=== PATIENT | female | born 1960 | race African-American/Black ===

== ENCOUNTER 2016-07-17 00:52 | Inpatient (IN) ==
--- NOTE | 2016-07-17 03:12 | PROVIDER DOCUMENTATION ---
HPI-Respiratory General - General Source: patient - History of Present Illness-Resp Quality of Pain: reports: aching, cramping Severity in ED: reports: moderate Onset/Duration: reports: unsure Timing: reports: still present, getting worse Cough Quality/Degree: reports: mild, productive cough, sputum (green) Associated Symptoms: reports: chest pain/soreness, cough, fever/chills, hurts to breathe, muscle/bodyaches, shortness of breath, short of breath, wheezing. denies: dizziness, headache, heart racing, hyperventilating, lightheadedness, sinus pain, sore throat, sweaty <Wesley Latham - Last Filed: 07/17/16 03:06> - General Source: patient - History of Present Illness-Resp Quality of Pain: reports: aching, pressure Severity in ED: reports: mild Onset/Duration: reports: 4-6 hours ago Timing: reports: getting worse Cough Quality/Degree: reports: moderate (orthopnea) Episode Frequency: rare episodes Current Respiratory Medication Therapy: Initiated none Associated Symptoms: reports: cough Similar Symptoms Previously?: No Recently seen or treated by another doctor?: Yes (dialysis pt) <Quan Land - Last Filed: 07/17/16 04:32> - General Chief Complaint: Cough Stated Complaint: COUGH Time Seen by Provider: 07/17/16 02:53 Allergies/Adverse Reactions: Patient Allergies Allergy/AdvReac Type Severity Reaction Status Date / Time No Known Allergies Allergy Verified 07/17/16 01:30 Home Medications: Home Medication List Medication Instructions Recorded Confirmed Last Taken Type Duloxetine HCl [Cymbalta] 80 mg PO QPM 08/30/12 03/24/16 03/28/16 20:00 History Insulin NPL/Insulin Lispro 20 unit SQ TID 08/12/13 03/24/16 03/28/16 20:00 History [Humalog Mix 75-25 Pen] Gabapentin 600 mg PO TID 11/04/14 03/24/16 03/28/16 20:00 History Insulin Glargine [Lantus] 40 unit SUBQ QHS 02/27/15 03/29/16 03/28/16 20:00 History ATORVAstatin [Lipitor] 60 mg PO QHS 03/20/15 03/24/16 03/28/16 20:00 History Felodipine [Felodipine ER] 10 mg PO QPM 03/20/15 03/24/16 03/28/16 20:00 History Fluticasone/Salmet 250/50 INH 1 puff INH BID 08/14/15 03/24/16 03/28/16 20:00 History [Advair 250/50 Diskus] LISINOpril [Prinivil] 40 mg PO BID 08/14/15 03/24/16 03/28/16 20:00 History Omeprazole [Prilosec] 40 mg PO BID 08/14/15 03/24/16 03/28/16 20:00 History Promethazine [Phenergan] 25 mg PO Q6H PRN PRN 08/14/15 03/24/16 01/06/16 09:00 History 25 MG Calcium Carbonate/Vit D3 [Caltrate 1 each PO TID 12/29/15 03/24/16 03/28/16 20: 00 History 600 + D] Polyethylene Glycol 3350 [Miralax] 17 gm PO DAILY #1 powd.pack 01/01/16 1 Week Ago Rx - History of Present Illness-Resp Nature of Presenting Problem: Pt is a 55 yof who presents to ER with CC of chest congestion x"a couple of days." Pt is a dialysis pt (Tuesday, , Tuesday) and reports that she has developed chest congestion, sob, c/p, and back pain. Pt denies the possibility of her symptoms being caused by CHF. Pt also reports fever and chills and a productive cough. (Wesley Latham) 55 yo [facility] dialysis was sbrought to ER due to chronic cough, orthopnea and generalized. She has not missed any dialysis , is scheduled to dialyze at 10 am today. She forgot to take her usual 40 units of Lantus tonight. She denies fever and chills. (Quan Land) Review of Systems - Adult - REVIEW OF SYSTEMS - ADULT Constitutional: reports: chills, fever, fatique. denies: night sweats Eyes: reports: no symptoms reported Ears, Nose, Mouth & Throat: reports: no symptoms reported Cardiovascular: reports: chest pain. denies: edema, heart murmur, irregular heart rate, orthopnea, palpitations, poor circulation, PND, syncope Respiratory: reports: chronic cough, cough, dyspnea on exertion, excessive sputum production, shortness of breath, wheezing. denies: hemoptysis, pleurisy Gastrointestinal: reports: no symptoms reported Genitourinary: reports: no symptoms reported Musculoskeletal: reports: back pain, muscle aches, muscle weakness. denies: bone pain, frequent leg cramps, joint pain, joint swelling, neck pain Integumentary: reports: no symptoms reported Neurological: reports: no symptoms reported Psychiatric: reports: no symptoms reported Endocrine: reports: no symptoms reported Hematologic/Lymphatic: reports: no symptoms reported Allergic/Immunologic: reports: no symptoms reported All Other Systems: Reviewed and Negative <Wesley Latham - Last Filed: 07/17/16 03:06> - REVIEW OF SYSTEMS - ADULT Constitutional: reports: no symptoms reported, see HPI Eyes: reports: no symptoms reported Ears, Nose, Mouth & Throat: reports: no symptoms reported Cardiovascular: reports: no symptoms reported Respiratory: reports: see HPI, chronic cough Gastrointestinal: reports: no symptoms reported Genitourinary: reports: no symptoms reported Musculoskeletal: reports: no symptoms reported Integumentary: reports: no symptoms reported Neurological: reports: no symptoms reported Psychiatric: reports: no symptoms reported Endocrine: reports: see HPI Hematologic/Lymphatic: reports: no symptoms reported Allergic/Immunologic: reports: no symptoms reported <Quan Land - Last Filed: 07/17/16 04:32> Past History - Adult - PAST MEDICAL HISTORY-ADULT Review of Records: reports: Nursing Assessment Review, Medications Reviewed Cardiovascular: reports: CHF, HTN, [place] Respiratory: reports: COPD Gastrointestinal: reports: GERD Genitourinary: reports: ESRD, kidney disease Musculoskeletal: reports: arthritis Neurological: reports: headaches/migraines, other (neuropathy) Psychiatric: reports: anxiety, other (panic attacks) Endocrine/Immune: reports: Diabetes Other Conditions: reports: cataract/glaucoma - PRIOR SURGERIES/PROCEDURES Surgical/Procedure History: reports: BTL, , orthopedic (extremity) ( bilateral carpel tunnel), other (lumpectomy, cataracts) - IMMUNIZATION STATUS Childhood Immunizations: See Nurse Assessment Flu Vaccine: See Nurse Assessment - FAMILY HISTORY Family History: other (cad in father age 50) <Wesley Latham - Last Filed: 07/17/16 03:06> - PAST MEDICAL HISTORY-ADULT Major Childhood Illnesses: reports: denies history (ESRD on hemoddialysis) Genitourinary: reports: dialysis, ESRD Musculoskeletal: reports: denies history Psychiatric: reports: denies history Diabetes Type: Type 2 <Quan Land - Last Filed: 07/17/16 04:32> Physical Exam-General - PHYSICAL EXAM-ADULT Initial Vital Signs Reviewed: Yes - CONSTITUTIONAL General Appearance: appears well, alert, moderate distress - NECK Neck: non-tender, full range of motion, supple - RESPIRATORY Respiratory: chest non-tender, lungs clear, normal breath sounds - CARDIOVASCULAR Cardiovascular: normal peripheral pulses, regular rate, rhythm - GASTROINTESTINAL (ABDOMEN) Abdominal Exam: normal bowel sounds, non tender, soft - LYMPHATIC Lymphatic: no adenopathy - NEUROLOGIC Neurologic: grossly normal, no motor/sensory deficits - PSYCHIATRIC Psych/Mental Status: normal mood/affect, normal thought content, normal thought process, oriented x 3 <Wesley Latham - Last Filed: 07/17/16 03:06> - PHYSICAL EXAM-ADULT Initial Vital Signs Reviewed: Yes - CONSTITUTIONAL General Appearance: appears well, mild distress - EYES Eyes: pink conjunctivae - HEAD, EARS, NOSE, MOUTH & THROAT HENMT: normocephalic/atraumatic - NECK Neck: non-tender, full range of motion - RESPIRATORY Respiratory: rales - CARDIOVASCULAR Cardiovascular: normal peripheral pulses, regular rate, rhythm. negative: no edema - GASTROINTESTINAL (ABDOMEN) Abdominal Exam: normal bowel sounds, non tender, soft - LYMPHATIC Lymphatic: no adenopathy - MUSCULOSKELETAL Extremity: normal range of motion - SKIN Integumentary: normal color - NEUROLOGIC Neurologic: grossly normal <uQan Land - Last Filed: 07/17/16 04:32> Progress <Weslye Latham - Last Filed: 07/17/16 03:06> - REASSESSMENT Reassessment #1 Time Reassessed: 04:29 - XRAY 1 XRAY Study: Chest Impression: Abnormal, See EMR Report <Quan Land - Last Filed: 07/17/16 04:32> - PLAN OF CARE/RESULTS Progress/Plan/Lab Results: Laboratory Tests 07/17/16 07/17/16 03:33 03:33 WBC 12.03 H RBC 3.35 L Hgb 10.1 L Hct 30.5 L MCV 91.0 MCH 30.1 MCHC 33.1 RDW Std Deviation 13.8 Plt Count 283 MPV 10.4 Immature Gran % (Auto) 0.3 Neut % (Auto) 76.5 H Lymph % (Auto) 11.[address] [place] % (Auto) 9.7 H Eos % (Auto) 1.5 Baso % (Auto) 0.4 Immature Gran # (Auto) 0.04 Neut # (Auto) 9.20 H Lymph # (Auto) 1.39 [facility] # (Auto) 1.17 H Eos # (Auto) 0.18 Baso # (Auto) 0.05 Sodium 130 L Potassium 3.8 Chloride 87 L Carbon Dioxide 24 L Anion Gap 19 BUN 43 H Creatinine 6.3 H Estimated GFR/1.73 m2 8 BUN/Creatinine Ratio 7 Glucose 685 H* Calculated Osmolality 304 Calcium 8.3 L Orders Category Date Time Status CHEST-2 VIEWS [RAD] Stat Exams 07/17/16 03:05 Taken BMP [BASIC METABOLIC PANEL] [CHEM] Stat Lab 07/17/16 03:33 Completed CBC WITH ELECTRONIC DIFF [HEME] Stat Lab 07/17/16 03:33 Completed Flu Swab [INFLUENZA SCREEN A/B] Stat Lab 07/17/16 01:23 Completed Insulin Human Regular [Humulin R] Med 07/17/16 04:06 Discontinued 10 unit IV NOW ONE Vital Signs Temp Pulse Resp BP Pulse Ox 07/17/16 04:06 91 H 14 176/72 95 07/17/16 01:28 100 H 18 193/78 100 07/17/16 00:59 98.7 F 102 H 20 205/95 88 L No Known Allergies Allergy (Verified 07/17/16 01:30) Duloxetine HCl [Cymbalta] 80 mg PO QPM 08/30/12 Insulin NPL/Insulin Lispro [Humalog Mix 75-25 Pen] 20 unit SQ TID 08/12/13 Gabapentin 600 mg PO TID 11/04/14 Insulin Glargine [Lantus] 40 unit SUBQ QHS 02/27/15 ATORVAstatin [Lipitor] 60 mg PO QHS 03/20/15 Felodipine [Felodipine ER] 10 mg PO QPM 03/20/15 Fluticasone/Salmet 250/50 INH [Advair 250/50 Diskus] 1 puff INH BID 08/14/15 LISINOpril [Prinivil] 40 mg PO BID 08/14/15 Omeprazole [Prilosec] 40 mg PO BID 08/14/15 Promethazine [Phenergan] 25 mg PO Q6H PRN PRN 08/14/15 Calcium Carbonate/Vit D3 [Caltrate 600 + D] 1 each PO TID 12/29/15 Polyethylene Glycol 3350 [Miralax] 17 gm PO DAILY #1 powd.pack 01/01/16 Laboratory 07/17/16 07/17/16 03:33 03:33 WBC 12.03 H RBC 3.35 L Hgb 10.1 L Hct 30.5 L MCV 91.0 MCH 30.1 MCHC 33.1 RDW Std Deviation 13.8 Plt Count 283 MPV 10.4 Immature Gran % (Auto) 0.3 Neut % (Auto) 76.5 H Lymph % (Auto) 11.[address] [place] % (Auto) 9.7 H Eos % (Auto) 1.5 Baso % (Auto) 0.4 Immature Gran # (Auto) 0.04 Neut # (Auto) 9.20 H Lymph # (Auto) 1.39 [facility] # (Auto) 1.17 H Eos # (Auto) 0.18 Baso # (Auto) 0.05 Sodium 130 L Potassium 3.8 Chloride 87 L Carbon Dioxide 24 L Anion Gap 19 BUN 43 H Creatinine 6.3 H Estimated GFR/1.73 m2 8 BUN/Creatinine Ratio 7 Glucose 685 H* Calculated Osmolality 304 Calcium 8.3 L (Quan Land) Departure <Wesley Latham - Last Filed: 07/17/16 03:06> - Departure Time of Disposition Order: 04:30 Certified Medical Emergency: Emergent - Critical Care Note Total Time (mins): 30 Critical Care Statement: This patient required my direct personal management to treat or rule out processes, the absence of which, could potentiallly result in sudden, clinically significant life or limb threatening deterioration. <Quan Land - Last Filed: 07/17/16 04:32> - Departure DIAGNOSIS: Pulmonary edema Hyperglycemia due to type 2 diabetes mellitus Qualifiers: Diabetes mellitus intermediate card tender insulin use: with nursing home use Qualified Code(s): E11.65 - Type 2 diabetes mellitus with hyperglycemia; Z79.4 - correction (current ) use of insulin CHF (congestive heart failure) Qualifiers: Congestive heart failure type: combined Disposition: ADMITTED INPATIENT 09 Condition: Poor Attestation - Scribe Verification/Attestation Scribe:: Wesley Latham Acting as Scribe for:: Quan Land Scribe documention review:: This chart was documented by a scribe and accurately reflects the service the provider performed and the decisions made by the provider. <Wesley Latham - Last Filed: 07/17/16 03:06> Physician Attestation
[2016-07-17 03:41] LABS: MANUAL DIFF NEEDED? NO
[2016-07-17 03:42] LABS: BASO% 0.4 % (0.0-0.8); EOS# 0.18 X1000 (0.0-0.7); EOS% 1.5 % (0.0-10.0); HEMATOCRIT 30.5 % (37.0-47.0); HEMOGLOBIN 10.1 g/dL (12.0-16.0); IMM GRAN# 0.04 X1000 (0.0-0.04); IMM GRAN% 0.3 % (0.0-0.5); LYMPH# 1.39 X1000 (1.2-3.4); LYMPH% 11.6 % (20.5-51.1); MCH 30.1 PG (27-31); MCHC 33.1 g/dL (33-37); MONO# 1.17 X1000 (0.11-0.59); MONO% 9.7 % (1.7-9.3); MPV 10.4 FL (7.4-10.4); NEUT% 76.5 % (42.2-75.2); PLT 283 X1000 (130-400); RBC 3.35 XMIL (4.2-5.4)
[2016-07-17 04:00] LABS: CALCIUM 8.3 mg/dL (8.8-10.2); POTASSIUM 3.8 mmol/L (3.5-5.1)
[2016-07-17] MEDS ORDERED: HUMULIN R IV ONE (04:06)
[2016-07-17] MEDS ORDERED: ZOFRAN IV ONE (05:04)
[2016-07-17] MEDS ORDERED: MORPHINE IV ONE (05:04)
[2016-07-17] MEDS ORDERED: ASPIRIN PO ONE (05:08)
[2016-07-17] MEDS ORDERED: MORPHINE ONE (05:08)
[2016-07-17] MEDS ORDERED: ASPIRIN ONE (05:09)
[2016-07-17] MEDS ORDERED: LASIX IV ONE (05:22)
[2016-07-17] MEDS ORDERED: LOPRESSOR PO ONE (05:29)
[2016-07-17] MEDS ORDERED: PHENERGAN PO PRN (05:54)
[2016-07-17] MEDS ORDERED: HUMALOG SUBQ ONE (05:54)
[2016-07-17] MEDS ORDERED: MORPHINE IV PRN ×2 (05:54→16:55)
[2016-07-17] MEDS ORDERED: TYLENOL PO PRN (05:54)
[2016-07-17 06:15] LABS: FERRITIN 1887 ng/mL (13-150)
[2016-07-17] MEDS: NITROGLYCERIN TOP SCH ×3 (06:35→21:40)
[2016-07-17 06:40] LABS: CK INDEX 1.1 (0.0-2.5); CK-MB 2.03 ng/mL (0.0-5.0)
[2016-07-17] MEDS ORDERED: PRILOSEC PO SCH ×2 (07:00→09:00)
[2016-07-17] MEDS ORDERED: HEPARIN IV PRN (07:27)
[2016-07-17] MEDS ORDERED: TIGHT: 0.2 ML/HR MISC PRN (07:27)
[2016-07-17] MEDS ORDERED: NS 2,000 ML MISC PRN (07:27)
[2016-07-17] MEDS: ADVAIR 250/50 DISKUS INH SCH ×2 (08:16→19:09)
--- NOTE | 2016-07-17 08:41 | HISTORY AND PHYSICAL ---
PHYSICIAN: Tommy Gupta MD CHIEF COMPLAINT: Complaining of 2-day history of chest pain, cough and shortness of breath. HISTORY OF PRESENT ILLNESS: Ms. Wilkerson is a 55-year-old lady with past medical history of end- stage renal disease on hemodialysis, hypertension, hyperlipidemia, sleep apnea, glaucoma, depression, diastolic heart failure GERD, prior CVA, uncontrolled type 2 diabetes with retinopathy, who comes in today complaining of left-sided chest pain radiating to her back and down her left arm which is aching in quality, constant, waxing and waning in intensity. It is associated with movement and eases when she stops moving. She is having a cough productive of whitish, foamy sputum and complains of nausea but no vomiting. Chills but no fever. Denies any palpitations, any leg swelling or abdominal swelling. Complains of 1-day history of orthopnea and PND with this. No complaints of easy satiety, polyuria, polydipsia, altered bowel movements. No upper respiratory complaints. REVIEW OF SYSTEMS: Negative for any intermittent blurry vision. She has a longstanding history of oligomenorrhea from her declining renal function. Twelve system review is negative. Positive findings per HPI. ALLERGIES: None. MEDICATIONS: She is on Cymbalta 80 mg in the evening, lispro, Humalog 3 times a day, gabapentin 600 mg b.i.d., Lantus 40 mg at bedtime, felodipine 10 mg at bedtime, Atorvastatin 60 mg at bedtime, Phenergan 25 mg q.6 p.r.n., Advair 250/50 one puff b.i.d., omeprazole 40 mg daily, lisinopril 40 mg b.i.d., Zantac 150 mg daily, calcium carbonate with vitamin D 1 tab in the morning. SURGICAL HISTORY: She has had bilateral cataract repair, bilateral carpal tunnel repair, lumpectomy, tubal ligation, AV fistula, formation section, abdominal surgery - type unknown. FAMILY HISTORY: Notable for heart disease in first-degree relatives and type 2 diabetes in first- degree relatives. SOCIAL HISTORY: Patient is for denies any tobacco, alcohol, or drug use. She is . LABORATORY WORK: EKG showed normal sinus rhythm with no ST-wave changes. Chest x-ray shows mildly increased vascular congestion but no cardiomegaly or infiltrate. Other labs, blood sugar is 12. Hemoglobin 10 and hematocrit 30, platelets 283,000, with slight left shift. Sodium is 130, BUN is 43, creatinine 6.3, glucose 685. Troponin is pending. PHYSICAL EXAMINATION: VITAL SIGNS: Blood pressure is 176/72, heart rate is 91, respiration rate is 14, temperature 97.8 degrees. GENERAL: She is middle-aged woman who is in mild distress from her pain. She is A and O x3 with normal mood and affect but anxious. Head is normocephalic, atraumatic. Eyes, AIXA, EOMI. She is anicteric and not pale. ENT and oropharyngeal exam is grossly normal. No central cyanosis. NECK: No JVD, bruit or thyromegaly but she has mild hepatojugular reflux. CHEST: Decreased entry in the bases with bibasilar crepitations. CARDIOVASCULAR: First and second heart sounds heard. No gallops, murmurs, rubs. Rhythm is regular. ABDOMEN: Protuberant and soft with very mild vague lower abdominal tenderness. EXTREMITIES: Trace edema in the lower extremities. Pulses distally in all extremities. Normal symmetrical. Good volume. No clubbing or peripheral cyanosis. NEUROLOGICAL: No focal deficits. SKIN: Intact with no breakdown lesions or erythema. MUSCULOSKELETAL: Exam is grossly normal. ASSESSMENT: 1. Chest pain syndrome in a patient with uncontrolled diabetes, hypertension and end-stage renal disease. Plan to do serial cardiac enzymes. Consult Cardiology. Order an echocardiogram. Start patient on nitroglycerin, p.r.n. morphine. Consider starting the patient on beta blockers. She was given 50 mg in the ER and further doses to be determined by Cardiology or Hospitalist. Aspirin was initiated and subcutaneous heparin for deep vein thrombosis prophylaxis initiated. 2. 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 We will bump up patient's dose of Lantus to 50 units a day and increase thereafter. Patient says she is adamant that she is compliant with her home medications. We will check A1c, and continue sliding scale. 3. Hypertensive heart disease and kidney disease. Continue home medications. Add on metoprolol. 4. Hyperlipidemia. May consider cutting the dose down from 60 to 40 mg due to the fact of the patient's renal dysfunction, but more importantly, she is on a high-dose calcium channel dania which may compete with the lisinopril to liver metabolism and thereby increasing the dose of Lipitor. 5. End-stage renal disease. Consult Dr. Ramírez for hemodialysis. The patient's schedule is Tuesday, Tuesday. 6. Chronic obstructive pulmonary disease. Continue with DuoNeb and Advair. 7. Patient is at moderate to high risk of having underlying cardiac disease though a normal EKG is somewhat reassuring. Cardiac enzymes will be ordered as stated as above. She has not had a stress test within the last year or so. One could be scheduled.
[2016-07-17] MEDS: ZOFRAN IV PRN (08:48)
[2016-07-17] MEDS ORDERED: LANTUS SUBQ SCH ×2 (09:00→21:00)
[2016-07-17] MEDS: HEPARIN SUBQ SCH ×2 (09:00→20:23)
[2016-07-17] MEDS ORDERED: PEPCID PO SCH (09:00)
[2016-07-17 09:02] LABS: ALBUMIN 3.5 g/dL (3.5-5.0); CALCIUM 8.5 mg/dL (8.8-10.2); POTASSIUM 3.1 mmol/L (3.5-5.1); TOTAL BILIRUBIN 0.46 mg/dL (0.20-1.00); TOTAL PROTEIN 6.7 g/dL (6.3-8.3)
[2016-07-17] MEDS ORDERED: DUONEB (A & A) INH SCH (10:00)
[2016-07-17] MEDS ORDERED: HEPARIN ONE (10:07)
[2016-07-17] MEDS ORDERED: NS 2,000 ML ONE (10:08)
--- NOTE | 2016-07-17 12:05 | Diag Imaging Result Document ---
PROCEDURE NAME: CHEST-2 VIEWS - 07/17/2016 AP AND LATERAL RADIOGRAPH OF THE CHEST: COMPARISON: 01/06/2016. FINDINGS: There are increased central lung markings and interstitial markings with a basilar predominance suggesting pulmonary venous congestion and not interstitial edema. Superimposed pneumonia at the lung bases is possible in the right clinical scenario. There appears to be trace fissural pleural fluid on the right. The cardiac silhouette is unremarkable. IMPRESSION: 1. Pulmonary venous congestion and interstitial edema. Superimposed pneumonia would be possible at the lung bases centrally in the right clinical scenario but more unlikely. 2. Trace right effusion.
--- NOTE | 2016-07-17 13:07 | CONSULTATION ---
DATE OF CONSULTATION: 07/17/2016 NEPHROLOGY CONSULT REASON FOR CONSULTATION: Assistance with management in end-stage renal disease patient. HISTORY OF PRESENT ILLNESS: Ms. Wilkerson is a 55-year-old woman with diabetes, hypertension, hyperlipidemia. She has end-stage kidney disease and receives dialysis every Tuesday, , and Tuesday. She attended her routine treatment on and was seen by me at that time. She had no new complaints and tolerated her treatment well. She states she went to bed last night without any symptoms and used her CPAP as per usual. She awakened in the night with shortness of breath that was progressive and unabated with her CPAP. She had some chest discomfort that radiated into the left arm. Because of these symptoms, she was transported to the hospital by her daughter. Evaluation overnight found evidence of congestive heart failure. Her chest x-ray had pulmonary vascular congestion. Her initial blood pressure was 205/95. Her blood pressure has been treated successfully and she is on nasal cannula oxygen. Chest pain and arm pain are resolved. Shortness of breath is resolved as well. She had a Lexiscan and echocardiogram last year, and there was a small area of attenuation which was not felt to be clinically relevant. PAST MEDICAL HISTORY: As above. HOME MEDICATIONS: Cymbalta, Humalog, insulin, felodipine, atorvastatin, Phenergan, Advair, omeprazole, lisinopril, Zantac, calcium carbonate. ALLERGIES: None. SOCIAL HISTORY: She is . No alcohol or tobacco. FAMILY HISTORY: Positive for diabetes and heart disease. REVIEW OF SYSTEMS: Otherwise noncontributory. PHYSICAL EXAMINATION: Vital signs: Blood pressure 113/66, heart rate 64, respiration 20, afebrile. General: She is a middle-aged woman lying at 30 degrees in no distress. Skin: Warm and dry. HEENT: Conjunctivae are pink. Pupils are equal. Oropharynx is clear. Normal dentition. Normal tongue. Neck: Supple. Trachea is midline. No jugular venous distention. Heart: Regular without gallops or murmurs. Lungs: Equal breath sounds. Crackles are present bilaterally. No wheezes. No retractions. Abdomen: Soft and nontender. Bowel sounds are present. No organomegaly, masses, or bruits. Extremities: Trace edema. No clubbing or cyanosis. LABORATORY DATA: Sodium 138, potassium 3.1, chloride 94, bicarbonate 25, BUN 44, creatinine 6.9, hemoglobin 10.1. IMPRESSION: 1. End-stage kidney disease: She will have her routine hemodialysis today with the exception that we will use a 3 potassium bath. We will test her dry weight today. 2. Chest pain: Cardiology has been consulted. Normal MB and recent Lexiscan performed. 3. Hypertension. Diastolic dysfunction may certainly have contributed to her presentation. Her blood pressure is much better now. We will observe. 4. Anemia. Continue erythropoietin dosing.
[2016-07-17] MEDS: CALTRATE 600 + D PO SCH (16:11)
[2016-07-17] MEDS: PLENDIL PO SCH (16:11)
[2016-07-17] MEDS: NEURONTIN PO SCH ×2 (16:11→20:23)
[2016-07-17] MEDS: ASPIRIN PO SCH (16:12)
[2016-07-17] MEDS: PRINIVIL PO SCH ×2 (16:12→20:22)
[2016-07-17] MEDS ORDERED: INSULIN PEN NEEDLES ONE (20:14)
[2016-07-17] MEDS: LIPITOR PO SCH (20:22)
[2016-07-17] MEDS: CYMBALTA PO SCH ×2 (20:27→21:40)
--- NOTE | 2016-07-17 20:31 | Diag Imaging Result Document ---
PROCEDURE NAME: CT THORAX W/O CONTRAST - 07/17/2016 CT THORAX WITHOUT CONTRAST: COMPARISON: 11/05/2014. FINDINGS: There are bibasilar small pleural effusions and there is bibasilar atelectasis. A superimposed component of pneumonia at the lung bases cannot completely be excluded in the right clinical scenario. There is a punctate calcified granuloma in the right lower lobe on image 57 of series 3. There is no evidence of pneumothorax. There is a small calcified mediastinal lymph node on the left indicating prior granulomatous disease. The heart does not appear to be enlarged. There are shotty nonspecific mediastinal lymph nodes that appear to be essentially stable. IMPRESSION: 1. Bibasilar small pleural effusions and atelectasis superimposed pneumonia at the lung bases cannot be excluded. 2. Other incidental/nonacute findings detailed above.
[2016-07-17] MEDS: HUMALOG SUBQ SCH (20:33)
[2016-07-18] MEDS: NITROGLYCERIN TOP SCH ×3 (06:05→20:16)
[2016-07-18] MEDS: PRILOSEC PO SCH (06:05)
[2016-07-18] MEDS: HUMALOG SUBQ SCH ×4 (06:05→20:16)
[2016-07-18] MEDS: ADVAIR 250/50 DISKUS INH SCH ×2 (07:30→21:45)
[2016-07-18] MEDS: PLENDIL PO SCH (09:21)
[2016-07-18] MEDS: PRINIVIL PO SCH ×2 (09:22→20:15)
[2016-07-18] MEDS: CALTRATE 600 + D PO SCH (09:22)
[2016-07-18] MEDS: HEPARIN SUBQ SCH ×2 (09:22→20:16)
[2016-07-18] MEDS: ASPIRIN PO SCH (09:22)
[2016-07-18] MEDS: NEURONTIN PO SCH ×2 (09:22→20:15)
--- NOTE | 2016-07-18 10:07 | Diag Imaging Result Document ---
PROCEDURE NAME: CHEST-1 VIEW - 07/18/2016 SINGLE FRONTAL RADIOGRAPH OF THE CHEST: COMPARISON: 07/17/2016. FINDINGS: There appears to have been modest improvement of the interstitial edema and infiltrates at the lung bases. No new consolidation is identified. Cardiac silhouette is stable. IMPRESSION: Interval improvement.
--- NOTE | 2016-07-18 11:27 | ECHO REPORT ---
ORDER DATE: 07/17/2016 ECHOCARDIOGRAPHIC MEASUREMENTS: 1. Interventricular septum 1.5, left ventricular posterior wall 1.5, diastolic diameter 4.3, left atrium 3.7. 2. Normal left ventricular cavity size. Concentric left ventricular hypertrophy moderate with hyperdynamic left ventricular systolic function. Estimated ejection fraction of 65-70%. 3. Aortic valve leaflets are mildly sclerosed, trileaflet, opening normally. Mitral valve was normal. Tricuspid valve was normal. Pulmonic valve was normal. 4. Peak velocity across the aortic valve was 2.3 m/sec. There is no aortic stenosis or regurgitation. 5. There is trace to mild mitral regurgitation. Mild tricuspid regurgitation. Peak velocity across the tricuspid valve was 2.9 m/sec. Pulmonary artery systolic pressure of 44 mmHg. 6. There is no pericardial effusion or obvious intracardiac mass or thrombus seen.
--- NOTE | 2016-07-18 12:18 | CONSULTATION ---
DATE OF CONSULTATION: 07/18/2016 REASON FOR CONSULTATION: Cardiology was consulted for chest pain/angina. HISTORY: Ms. Wilkerson is a 55-year-old black lady with history of end-stage renal disease on dialysis, hyperlipidemia, hypertension, glaucoma, diabetes, history of previous CVA. She comes with complaints of having chest discomfort. The patient states that for the last few weeks she has been having sharp episodes of chest pain. In addition, pressure-like sensation associated with shortness of breath. Before she came to the emergency room, she had increasing chest pain; again, started as sharp in character, then it was a pressure-like sensation across the chest radiating to her left arm. There was associated shortness of breath. There are no palpitations. There is no dizziness or syncope. Her last stress test in 2015 was unremarkable. She also was admitted and had elevated blood sugars up to 685. Cardiac enzymes as below. REVIEW OF SYSTEMS: A 14-point review of systems was done. GI System: There is no history of nausea, vomiting, diarrhea. There is no history of hematemesis or melena. Central Nervous System: No focal weakness to suggest a CVA or TIA. System: There is no dysuria or hematuria. Respiratory: There is no history of fevers, chills. There is no history of cough or expectoration. PAST MEDICAL HISTORY: 1. End-stage renal disease, on dialysis. 2. Hypertension. 3. Hyperlipidemia. 4. Sleep apnea. 5. Glaucoma. 6. Diastolic heart failure. 7. Gastroesophageal reflux disease. 8. Uncontrolled diabetes. 9. Bilateral cataract repair. 10. Bilateral carpal tunnel repair. 11. Tubal ligation. 12. AV fistula left arm. 13. section. 14. Lumpectomy. SOCIAL HISTORY: The patient does not smoke. There is no history of alcohol abuse. PHYSICAL EXAMINATION: VITAL SIGNS: Blood pressure was 134/70. CARDIOVASCULAR SYSTEM: Normal jugular venous pressure. There is no thyromegaly. There is no carotid bruit. First and second heart sounds were heard. There was no S3 gallop. RESPIRATORY SYSTEM: Normal air entry. There are no crepitations or rhonchi. ABDOMEN was soft, nontender. There was no guarding or rigidity. Bowel sounds were heard. CENTRAL NERVOUS SYSTEM: Alert and was moving all 4 extremities. There was a fistula placed on the right arm. ASSESSMENT AND PLAN: Ms. Alicja Wilkerson is a 55-year-old black lady with multiple medical problems including hypertension, diabetes, end-stage renal disease on dialysis, who comes with complaints of recurrent episodes of chest pain as described above. The patient has unstable angina. Electrocardiogram revealed normal sinus rhythm, normal EKG. LABORATORY EXAMINATION: Hemoglobin 10, WBC 12, hematocrit 30, platelet count of 283,000. Chemistry: Sodium 130, potassium 3.8. BUN 43, creatinine 6.3. Given her ongoing chest pain as the patient has unstable angina and last stress test last year was unremarkable, I recommended that she undergo a left heart catheterization. Risks, benefits, alternatives were explained. The patient will be set up for left heart catheterization shortly. In addition to her medications, she is already on aspirin, and we will add beta blockers. Hypertension. was elevated but is under control now. She is on multiple medications. There have not made any changes. Her last echocardiogram was in 2014. We will repeat an echocardiogram as well. Thank you for the consult. We will follow the hospital course. Sincerely,
[2016-07-18] MEDS: TOPROL XL PO SCH (13:57)
--- NOTE | 2016-07-18 14:33 | PROGRESS NOTE ---
DATE: 07/18/2016 SUBJECTIVE: Patient is feeling fine although she describes still mild shortness of breath that is mostly when we palpate the chest wall. OBJECTIVE: Vital Signs: Temperature 98.4 degrees, heart rate 79, respiratory rate 18, blood pressure 137/65, O2 saturation 99% 2 L nasal cannula. General Examination: This is a 55-year- old, female lying in bed in no acute distress. HEENT: Head is normocephalic, atraumatic. Anicteric sclerae and pale conjunctivae. Mucous membranes moist. Neck: Supple. No JVD noted. No carotid bruits. No lymphadenopathy. No thyromegaly. Cardiovascular Examination: S1-S2 heard, no murmurs, gallops, or rubs. Regular rate and rhythm. Respiratory: Clear bilaterally to auscultation. No work of breathing or using accessory muscles. Abdomen: Soft, nontender to palpation. Bowel sounds present. No organomegaly. Extremities: Mild edema in both lower extremities. Peripheral pulses present. Neurological: Patient alert, oriented x3. Moves 4 extremities. LABORATORY DATA: There is no lab from today and troponin has been trended and is really mildly elevated but around the same numbers since admission. ASSESSMENT AND PLAN: 1. Chest pain. 2. Uncontrolled diabetes mellitus type 2. 3. Uncontrolled hypertension. 4. Hyperlipidemia. 5. End-stage renal disease on hemodialysis. 6. Chronic obstructive pulmonary disease. PLAN: 1. Patient has been evaluated by Cardiology today and considering her risk factors, Dr. Huang thinks that this is more convenient for this patient to have left heart catheterization. That procedure is going to be done tomorrow. Will discuss with them after that depending upon the result if she is able to go home or not. 2. Regarding uncontrolled diabetes, we are adjusting the dose of Lantus. Initially she is using 50 units a day that was not increased. At this time numbers high so we prefer to increase to 55 units daily and will continue checking Accu-Cheks before meals and also at bedtime. 3. For blood pressure the systolic blood pressure is mostly in the range of 110-120s almost to 130 so I think that we are going to continue with the same management by now. 4. Further recommendations to follow according to the clinical situation of the patient.
[2016-07-18] MEDS: CYMBALTA PO SCH (20:15)
[2016-07-18] MEDS: LIPITOR PO SCH (20:15)
[2016-07-18] MEDS: LANTUS SUBQ SCH (20:16)
[2016-07-19] MEDS: NITROGLYCERIN TOP SCH ×3 (05:02→21:36)
[2016-07-19] MEDS: PRILOSEC PO SCH ×2 (05:02→06:11)
[2016-07-19 05:23] LABS: MANUAL DIFF NEEDED? NO
[2016-07-19 05:28] LABS: BASO% 0.4 % (0.0-0.8); EOS# 0.37 X1000 (0.0-0.7); EOS% 3.2 % (0.0-10.0); HEMATOCRIT 31.8 % (37.0-47.0); HEMOGLOBIN 10.2 g/dL (12.0-16.0); IMM GRAN# 0.03 X1000 (0.0-0.04); IMM GRAN% 0.3 % (0.0-0.5); LYMPH# 2.65 X1000 (1.2-3.4); MCH 29.7 PG (27-31); MCHC 32.1 g/dL (33-37); MCV 92.7 FL (81-99); MONO# 1.34 X1000 (0.11-0.59); MONO% 11.6 % (1.7-9.3); MPV 10.4 FL (7.4-10.4); NEUT% 61.5 % (42.2-75.2); PLT 310 X1000 (130-400); RBC 3.43 XMIL (4.2-5.4)
--- NOTE | 2016-07-19 05:47 | EKG Report ---
Test Performed on : 07/17/2016 4:27:53 PM Test Reason : Chest pain Blood Pressure : / mmHG Vent. Rate : 075 BPM Atrial Rate : 075 BPM P-R Int : 148 ms QRS Dur : 080 ms QT Int : 416 ms P-R-T Axes : 046 013 050 degrees QTc Int : 464 ms Normal sinus rhythm. Normal ECG When compared with ECG of 17-JUL-2016 05:11, (Unconfirmed) No significant change was found Confirmed by Clive Dominguez MD ([id number]) on 07/21/2016 8:47:56 PM
[2016-07-19 06:00] LABS: ALBUMIN 3.5 g/dL (3.5-5.0); CALCIUM 8.6 mg/dL (8.8-10.2); POTASSIUM 3.8 mmol/L (3.5-5.1); TOTAL BILIRUBIN 0.19 mg/dL (0.20-1.00)
[2016-07-19 06:03] LABS: INR 0.98; PROTIME 10.4 Seconds (9.2-11.7); PTT 30.8 Seconds (22.0-36.0)
[2016-07-19] MEDS: HUMALOG SUBQ SCH ×4 (06:11→21:37)
--- NOTE | 2016-07-19 06:13 | EKG Report ---
Test Performed on : 07/19/2016 05:54:32 AM Test Reason : [facility] Blood Pressure : / mmHG Vent. Rate : 073 BPM Atrial Rate : 073 BPM P-R Int : 152 ms QRS Dur : 076 ms QT Int : 394 ms P-R-T Axes : 048 009 038 degrees QTc Int : 434 ms Normal sinus rhythm. Normal ECG When compared with ECG of 17-JUL-2016 16:27, (Unconfirmed) No significant change was found Confirmed by Clive Dominguez MD ([id number]) on 07/21/2016 8:59:50 PM
--- NOTE | 2016-07-19 06:36 | EKG Report ---
Test Performed on : 07/17/2016 05:11:27 AM Test Reason : cp Blood Pressure : / mmHG Vent. Rate : 091 BPM Atrial Rate : 091 BPM P-R Int : 146 ms QRS Dur : 082 ms QT Int : 358 ms P-R-T Axes : 056 014 023 degrees QTc Int : 440 ms Normal sinus rhythm. Normal ECG When compared with ECG of 06-JAN-2016 17:35, No significant change was found Unconfirmed Result
[2016-07-19] MEDS: ADVAIR 250/50 DISKUS INH SCH ×2 (07:59→19:35)
[2016-07-19] MEDS ORDERED: HEPARIN 1000 UNITS/NS 1,000 ML ONE (09:16)
[2016-07-19] MEDS ORDERED: NITROGLYCERIN ONE (09:17)
[2016-07-19] MEDS: EPOGEN SUBQ SCH ×2 (09:28→12:28)
[2016-07-19] MEDS: PLENDIL PO SCH (09:28)
[2016-07-19] MEDS: NEURONTIN PO SCH ×2 (09:28→21:36)
[2016-07-19] MEDS: ASPIRIN PO SCH (09:28)
[2016-07-19] MEDS: HEPARIN SUBQ SCH ×3 (09:29→21:37)
[2016-07-19] MEDS: CALTRATE 600 + D PO SCH (09:29)
[2016-07-19] MEDS: TOPROL XL PO SCH (09:29)
[2016-07-19] MEDS: PRINIVIL PO SCH ×2 (09:29→21:35)
[2016-07-19] MEDS: NS 1,000 ML IV SCH (09:30)
[2016-07-19] MEDS ORDERED: DEMEROL ONE (09:46)
[2016-07-19] MEDS ORDERED: VERSED ONE (09:46)
--- NOTE | 2016-07-19 11:33 | EKG Report ---
Test Performed on : 07/19/2016 11:10:27 AM Test Reason : post cath Blood Pressure : / mmHG Vent. Rate : 066 BPM Atrial Rate : 066 BPM P-R Int : 158 ms QRS Dur : 080 ms QT Int : 438 ms P-R-T Axes : 055 011 040 degrees QTc Int : 459 ms Normal sinus rhythm. Normal ECG When compared with ECG of 19-JUL-2016 05:54, (Unconfirmed) No significant change was found Confirmed by Clive Dominguez MD ([id number]) on 07/21/2016 9:04:44 PM
--- NOTE | 2016-07-19 11:39 | PROGRESS NOTE ---
DATE: 07/19/2016 SUBJECTIVE: Patient is not complaining of any chest pain anymore. She denies any fever or chills. OBJECTIVE: Vital Signs: Temperature 98.1 degrees, heart rate 72, respiratory rate 18, blood pressure 117/61, O2 saturation 99% on 2 L nasal cannula. General Examination: This is a 55-year- old, female lying in bed, in no acute distress. HEENT: Head is normocephalic and atraumatic. Anicteric sclerae and pale conjunctivae. Mucous membranes are moist. Neck: Supple. No JVD noted. No carotid bruit. No lymphadenopathy. No thyromegaly. Cardiovascular Examination: S1 and S2 heard. No murmurs, gallops, or rubs. Regular rate and rhythm. Respiratory Examination: Clear bilaterally to auscultation. No work of breathing or using accessory muscles. Abdomen: Soft, nontender to palpation. Bowel sounds present. No organomegaly. Extremities: No clubbing, cyanosis, or edema. Extremities: Peripheral pulses present in both legs. Neurological Examination: Patient is alert and oriented x3. Able to move her extremities. Cranial nerves 2-12 are grossly normal. Laboratory Data: The white cell count is 11.2, hemoglobin 10.2, hematocrit 31.8, platelets 310,000. BMP unremarkable except for creatinine of 8.9 and BUN 50. ASSESSMENT AND PLAN: 1. Chest pain. 2. Uncontrolled diabetes mellitus type 2. 3. Uncontrolled hypertension. 4. Hyperlipidemia. 5. End-stage renal disease, on hemodialysis. 6. Chronic obstructive pulmonary disease. PLAN: 1. Patient has been evaluated by cardiology today and considering all her risk factors, they are going to proceed to do a left heart catheterization today. We will see what that exam reports. We will check with cardiology later today. 2. For diabetes mellitus, we will continue with sliding scale insulin. 3. For uncontrolled hypertension, the blood pressure is definitely much better controlled. 4. For hyperlipidemia, we will continue with statins. 5. While she is in the hospital, we will continue also with hemodialysis 3 times per week.
--- NOTE | 2016-07-19 12:14 | CARDIAC CATH REPORT ---
DATE: 07/19/2016 PROCEDURES PERFORMED: 1. Left heart catheterization. 2. Selective coronary angiogram. 3. Left ventriculogram. 4. Opacification of right femoral artery with deployment of 6-Ivorian Angio-Seal device. HISTORY: Ms. Wilkerson is a 55-year-old female who presented to the hospital with significant chest pain. The patient has history of end stage renal disease on hemodialysis. Dr. Huang evaluated the patient and recommended a left heart catheterization to confirm or rule out the presence of severe obstructive coronary artery disease since the presentation was consistent with unstable angina. The benefits, risks and complications were explained to her. She understood and requested to proceed. DESCRIPTION OF PROCEDURE: The patient was brought to the cardiac medical laboratory technical officer and received 1 mg of Versed and 25 mg of Demerol. The right groin was prepped and draped in sterile fashion and anesthetized with lidocaine 1%. A 6-Ivorian sheath was inserted into the right femoral artery by following the modified Seldinger technique. Using 6-Ivorian, 4 left and right Yasmeen catheters, the left and right coronary arteries were sequentially opacified in multiple projections. Thereafter, the right Yasmeen catheter was used to opacify the left ventricle in the 60 degree COOK ISLANDER projection and 30 degree CANTU projection. At the conclusion of the procedure, the catheter was removed, and the sheath was flushed. Right femoral artery was opacified, and then Angio-Seal device was deployed successfully. The patient tolerated the procedure well without any obvious complication. SUMMARY OF HEMODYNAMIC FINDINGS: Central aortic pressure was 107/61. Left ventricular pressure was 112/21. Post LV gram was 114/24. Final central aortic pressure was 110/62. SUMMARY OF ANGIOGRAPHIC FINDINGS: 1. Left main coronary artery: This vessel appears to be anatomically normal. It divides into the LAD and circumflex. 2. Left anterior descending coronary artery: This vessel shows no obvious obstruction. It gives rise to a septal branch and diagonal branch. After the origin of these 2 vessels, the LAD tapers down to a smaller caliber vessel. No definite significant obstruction is noted. The LAD continues down at the interventricular groove and reaches the apex of the left ventricle. No significant plaque or obstruction is noted along the course of the LAD. 3. Circumflex: The circumflex coronary artery gives rise early on to a high lateral branch which is a large vessel, caliber of 3 mm. This vessel is normal. Immediately thereafter, the AV circumflex portion is normal and continues down all the way until it gives rise to a posterolateral vessel and an additional posterolateral circumflex. The entire circumflex is normal. 4. Right coronary artery: The right coronary artery appears to be anatomically normal. It gives rise to a sinus severino branch and conus branch. This vessel is anatomically normal. It gives rise to a posterior descending branch and a posterolateral ventricular vessel. LEFT VENTRICULOGRAM: Left ventriculogram in the 30 degree CANTU projection and 60 degree [place]OOK ISLANDER projection reveals enlargement of the left ventricular chamber with ejection fraction probably at the lower limits of normal, estimated at 55%. No mitral regurgitation is noted. OPACIFICATION OF RIGHT FEMORAL ARTERY: The right femoral artery is anatomically normal. Angio- Seal device was deployed successfully. CONCLUSIONS: 1. Essentially normal coronary arteries. There is no definite evidence of any coronary obstruction or plaque. 2. Preserved left ventricular systolic function. Ejection fraction is estimated at 55%. 3. Left ventricular diastolic dysfunction with elevation of LVEDP. Probably related to end stage renal disease. 4. Unremarkable right femoral artery. Deployment of 6-Ivorian Angio-Seal device successfully. 5. No aortic stenosis. No mitral regurgitation. RECOMMENDATIONS: The patient should be managed by Nephrology Team. No evidence of any coronary artery disease or cardiomyopathy present at this time.
[2016-07-19] MEDS ORDERED: INSULIN PEN NEEDLES ONE (20:34)
[2016-07-19] MEDS: LIPITOR PO SCH (21:36)
[2016-07-19] MEDS: CYMBALTA PO SCH (21:37)
[2016-07-19] MEDS: LANTUS SUBQ SCH (21:37)
[2016-07-20] MEDS: NITROGLYCERIN TOP SCH ×3 (05:40→22:41)
[2016-07-20] MEDS: NS 1,000 ML IV SCH (05:40)
[2016-07-20 05:52] LABS: ALBUMIN 3.1 g/dL (3.5-5.0); CALCIUM 8.1 mg/dL (8.8-10.2); POTASSIUM 4.3 mmol/L (3.5-5.1)
[2016-07-20] MEDS: HUMALOG SUBQ SCH ×4 (06:36→20:34)
[2016-07-20] MEDS: PRILOSEC PO SCH (06:36)
[2016-07-20] MEDS ORDERED: HEPARIN IV PRN (06:41)
[2016-07-20] MEDS ORDERED: NS 2,000 ML MISC PRN (06:41)
[2016-07-20] MEDS ORDERED: TIGHT: 0.2 ML/HR MISC PRN (06:41)
--- NOTE | 2016-07-20 07:33 | CONSULTATION ---
DATE OF CONSULTATION: 07/19/2016 REASON FOR ADMISSION: Two-day history of chest pain associated with cough and increased work of breathing. TIME SEEN: 0820 HISTORY OF PRESENT ILLNESS: Ms. Wilkerson is a 55-year-old, female who is known to our outpatient services for hemodialysis on Tuesday, , Tuesday at the [facility]. Patient had presented to her last dialysis treatment with no indications of any pain at that time. She stated that after her last dialysis treatment, she started complaining of left-sided chest pain. It was radiating to her back, down her left arm. It had an aching quality. It waxed and waned. Increased with movement. It was associated with a productive cough, white foamy sputum. She complained of nausea. No vomiting. No fever or chills. No increased lower extremity swelling. No abdominal swelling. PAST MEDICAL HISTORY: She has end-stage renal disease with hemodialysis on Tuesday, , Tuesday at the [facility]. She has a history of hypertension, hyperlipidemia, sleep apnea, glaucoma, history of depression, diastolic heart failure, GERD, prior CVA, uncontrolled diabetes mellitus type 2 with insulin dependence. She has retinopathy with neuropathy, anemia secondary to chronic disease, and osteodystrophy secondary to chronic disease. PREVIOUS SURGICAL HISTORY: Bilateral cataract repair, bilateral carpal tunnel repair, lumpectomy, tubal ligation, AV fistula formation, section, abdominal surgery for previous gastric resection. FAMILY HISTORY: Positive for heart disease in first-degree relative and type 2 diabetes in first- degree relatives. SOCIAL HISTORY: She is . She lives with her spouse. She has family who are attentive to her care. Patient denies any tobacco, alcohol, or illicit drug use. ALLERGIES: None. MEDICATIONS: Cymbalta, lispro, Humalog, gabapentin, Lantus, felodipine, atorvastatin, Phenergan, Advair, omeprazole, lisinopril, Zantac, calcium carbonate. Patient also receives Ferrlecit, protein X, Aranesp, and Rocaltrol at the outpatient clinic as indicated per her labs. REVIEW OF SYSTEMS: Review of systems x10 with pertinent positives listed above in the HPI. VITAL SIGNS: Her most recent vital signs, temperature 98.7 degrees, blood pressure 121/71, heart rate 75, respirations 16. She is on room air. Last recorded saturation 98%. She has had 600 in. She has had 0 out with 4 L the previous day on dialysis, with need for dialysis in the a.m. LABS: Her most recent labs, her sodium is 138, potassium 3.8, chloride is 92, CO2 27, BUN 50, creatinine 8.6, glucose 120, calcium 8.6, albumin 3.5. Previous magnesium of 2.1. White count 11.52, hemoglobin 10.2, hematocrit 31.8, with a platelet count of 310,000. She has a prothrombin time of 10.4 with an INR of 0.98 and a PTT of 30.8 this a.m. PHYSICAL EXAMINATION: General: This is a 55-year-old, female. She is resting quietly in bed. She is in no acute distress. Skin: Warm and dry. HEENT: Normocephalic, atraumatic. Conjunctivae are pale. She has AIXA. Mucous membranes moist. Neck: Supple. Trachea midline. No JVD. Cardiovascular: Regular rate and rhythm. She is without murmur or gallop. Lungs: Clear to auscultation anteriorly. Equal excursion on room air. Abdomen: Large, round, soft, nontender. Positive bowel sounds. Genitourinary: Not inspected. Minimal void with hemodialysis assist. Extremities: Have no edema. No clubbing or cyanosis. Integumentary: No rashes or lesions evident. Neurological: Alert and oriented x3. ASSESSMENT AND PLAN: 1. End-stage renal disease. Patient is due for her routine dialysis treatment in the morning. We will plan for an appropriate bath. 2. Electrolytes. These are stable. 3. Acid-base balance. This is stable. 4. Anemia. This remains stable. 5. Chest pain. Patient is scheduled for a left heart catheterization this morning. No indications for any intervention. 6. Hypotension. This remains stable. I would like to thank you for allowing us to follow with this patient. Seen, data reviewed, discussed with Viviana Lay on 07/19/16. I agree with the above assessment and plan of care. rg Dictated by CON Ch for Daquan Ramírez MD MTDD
[2016-07-20] MEDS: ADVAIR 250/50 DISKUS INH SCH ×2 (07:41→19:30)
--- NOTE | 2016-07-20 14:48 | PROGRESS NOTE ---
DATE: 07/20/2016 SUBJECTIVE: This patient is not complaining of chest pain at this moment. She had a left heart catheterization yesterday that did not show any abnormality so the source of her chest pain is noncardiac. She has been complaining of abdominal soreness and diarrhea that started yesterday, she had about 3 bowel movements. The last one was at 9 a.m. I am going to ask for C. difficile antibodies and antigen to rule out C. difficile colitis and also I will continue monitoring this patient in the [facility]. She is due for dialysis today. OBJECTIVE: Vital Signs: Temperature 99 degrees, pulse 93, respiratory rate 15, blood pressure 139/68, O2 saturation 100% on 2 L of nasal cannula. HEENT: Head normocephalic. No trauma. PERRLA. Neck: Supple. No JVD. No masses. Central trachea. Chest: Clear to auscultation. No wheezing. No rales. Cardiovascular: RRR. No murmurs. Abdomen: Soft. Mild tenderness to palpation in the epigastric area and left abdominal area. Extremities: No edema. No clubbing. No cyanosis. Neurological: The patient is alert, oriented x3. No focal neurological deficits. LABORATORY: Sodium 132, potassium 4.3, chloride 89, bicarbonate 23, BUN 67, creatinine 10.4, glucose 115, calcium 8.1, phosphorus 7.8, magnesium 2.1, albumin 3.1. ASSESSMENT AND PLAN: 1. Chest pain status post left heart catheterization, that was completely normal. The source of infection is noncardiac, this patient is not complaining today of chest pain, she is due today for dialysis. Will continue to monitor. 2. End-stage renal disease on hemodialysis. She will hopefully have dialysis today. Will continue to monitor. Nephrology Department is following this patient. 3. Diarrhea. This patient had about 6 episodes of watery diarrhea during the night, the last one was today 6 a.m. We will monitor. No medications for now. I will ask for C. difficile antigen and antibody. 4. Type 2 diabetes. The blood sugar is controlled. Will continue with sliding scale. 5. Hyperlipidemia. Continue with the same treatment. 6. Chronic obstructive pulmonary disease not in exacerbation. Will continue with the same management, monitoring. CRITICAL CARE TIME: 35 minutes.
[2016-07-20] MEDS ORDERED: ZOFRAN ONE (15:52)
[2016-07-20] MEDS: ZOFRAN IV PRN (15:57)
--- NOTE | 2016-07-20 17:05 | PROGRESS NOTE ---
DATE: 07/20/2016 SUBJECTIVE: Ms. Wilkerson is currently resting quietly in bed. She denies any chest pain. No increased work of breathing. States that she is a little nauseated. OBJECTIVE: Her most recent vital signs, temperature 99 degrees, blood pressure 139/68, heart rate 93, respirations 14. She is on 2 L nasal cannula. Last recorded saturation is 100%. She has had 1587 in. She is in need for dialysis today. LABS: Sodium 132, potassium 4.3, chloride is 89, CO2 23, BUN 67. Creatinine 10.4, glucose 115. Her anion gap is 20, calcium 8.1, phosphorus 7.8, magnesium 2.1, albumin 3.1. Previous hemoglobin on the was 10.2. PHYSICAL EXAMINATION: General: This is a 55-year-old female. She is resting quietly in bed. She is in no acute distress. Skin: Warm and dry. HEENT: Normocephalic, atraumatic. Conjunctiva is pale. She has AIXA. Mucous membranes moist. Neck : Supple. Trachea midline. No JVD. Cardiovascular: Regular rate and rhythm. She is without murmur or gallop. Lungs: Clear to auscultation anteriorly. Equal excursion. She remains on room air. Abdomen: Large, round, soft, nontender. Positive bowel sounds. Genitourinary: Not inspected. Dialysis assist. Extremities: Have no edema. No clubbing or cyanosis. Integumentary: No rashes or lesions evident. Neurological: Alert and oriented x3. ASSESSMENT AND PLAN: 1. End-stage renal disease. Patient is due for her routine dialysis treatment this a.m. We will place her on a 2 K bath. She is to dialyze for 3.5 hours. We will attempt to pull her to her outpatient dry weight. 2. Electrolytes and acid-base balance. These are stable. 3. Anemia. This remains stable. 4. Chest pain. Patient has had a left heart catheterization yesterday per Dr. Lo indicating her estimated ejection fraction of 55% with no mitral regurg with interpretation of normal coronary arteries. I would like to thank you for allowing us to follow with this patient. Seen, data reviewed, discussed with Viviana Lay on 07/20/16. I agree with the above assessment and plan of care. rg Dictated by CON Ch for Daquan Ramírez MD [facility]
[2016-07-20] MEDS: ASPIRIN PO SCH (17:09)
[2016-07-20] MEDS: PLENDIL PO SCH (17:09)
[2016-07-20] MEDS: TOPROL XL PO SCH (17:09)
[2016-07-20] MEDS: CALTRATE 600 + D PO SCH (17:09)
[2016-07-20] MEDS: NEURONTIN PO SCH ×2 (17:10→20:30)
[2016-07-20] MEDS: PRINIVIL PO SCH ×2 (17:10→20:31)
[2016-07-20] MEDS: HEPARIN SUBQ SCH ×2 (17:10→20:30)
[2016-07-20] MEDS: LIPITOR PO SCH (20:30)
[2016-07-20] MEDS: CYMBALTA PO SCH (20:30)
[2016-07-20] MEDS: LANTUS SUBQ SCH (20:34)
[2016-07-21] MEDS: NITROGLYCERIN TOP SCH ×2 (04:46→13:26)
[2016-07-21] MEDS: NS 1,000 ML IV SCH (04:46)
[2016-07-21 05:24] LABS: MANUAL DIFF NEEDED? NO
[2016-07-21 05:32] LABS: BASO% 0.5 % (0.0-0.8); EOS# 0.31 X1000 (0.0-0.7); HEMATOCRIT 31.9 % (37.0-47.0); IMM GRAN# 0.02 X1000 (0.0-0.04); IMM GRAN% 0.2 % (0.0-0.5); LYMPH# 1.85 X1000 (1.2-3.4); LYMPH% 17.7 % (20.5-51.1); MCH 29.8 PG (27-31); MCHC 31.3 g/dL (33-37); MCV 94.9 FL (81-99); MONO# 1.46 X1000 (0.11-0.59); MPV 10.6 FL (7.4-10.4); NEUT% 64.6 % (42.2-75.2); PLT 312 X1000 (130-400); RBC 3.36 XMIL (4.2-5.4)
[2016-07-21] MEDS: HUMALOG SUBQ SCH ×4 (06:15→20:21)
[2016-07-21] MEDS: PRILOSEC PO SCH (06:15)
[2016-07-21 07:03] LABS: ALBUMIN 3.4 g/dL (3.5-5.0); CALCIUM 8.2 mg/dL (8.8-10.2); POTASSIUM 4.3 mmol/L (3.5-5.1)
[2016-07-21] MEDS: ASPIRIN PO SCH (08:31)
[2016-07-21] MEDS: PLENDIL PO SCH (08:32)
[2016-07-21] MEDS: PRINIVIL PO SCH ×2 (08:32→20:21)
[2016-07-21] MEDS: NEURONTIN PO SCH ×2 (08:32→20:20)
[2016-07-21] MEDS: TOPROL XL PO SCH (08:32)
[2016-07-21] MEDS: CALTRATE 600 + D PO SCH (08:32)
[2016-07-21] MEDS: HEPARIN SUBQ SCH ×2 (08:33→20:21)
[2016-07-21] MEDS: EPOGEN SUBQ SCH (08:33)
[2016-07-21] MEDS: ADVAIR 250/50 DISKUS INH SCH ×2 (09:30→19:35)
--- NOTE | 2016-07-21 10:33 | PROGRESS NOTE ---
DATE: 07/21/2016 SUBJECTIVE: Ms. Wilkerson is resting quietly in bed. She states that she has gotten a good report on her heart. She has had no further chest pain. Denies chest pain or increased work of breathing. OBJECTIVE: Her most recent vital signs, her temperature is 98.8 degrees, blood pressure 105/69, heart rate 72 and respirations 16. She remains on 2 L nasal cannula. Last recorded saturation 100%. She has had 810 in and 4371 out. LABORATORY: Her labs this morning, sodium 137, potassium 4.3, chloride 93, CO2 27, BUN 37, creatinine 6.5, and glucose 207. Her anion gap is 17. Calcium 8.2, phosphorus 5, albumin 3.4, white count 10.44, hemoglobin 10, hematocrit 31.9 with a platelet count of 312, 000. Patient is on C. Diff. Final assay has come back as negative. PHYSICAL EXAMINATION: General: This is a 55-year-old female. She is resting quietly in bed in no acute distress. Skin: Warm and dry. HEENT: Normocephalic, atraumatic. Conjunctivae pale. She has AIXA. Mucous membranes moist. Neck: Supple. Trachea midline. No JVD. Cardiovascular: Regular rate and rhythm. She is without murmur or gallop. Lungs: Clear to auscultation anteriorly. Equal excursion. She is on room air. Abdomen: Round, soft and nontender. Positive bowel sounds. Genitourinary: Not inspected with dialysis assist. Extremities: No edema. No clubbing or cyanosis. Integumentary: No rashes or lesions evident. Neurological: Alert and oriented x3. ASSESSMENT AND PLAN: 1. End-stage renal disease. Patient is due for her routine dialysis treatment tomorrow in the morning. HD in AM prior to d/c. rg 2. Electrolytes and acid-base balance. These are stable. 3. Anemia. This is stable. Chest pain. Resolved. (-) [facility]. I would to thank you for allowing us to follow with this patient. Seen, data reviewed, discussed with Viviana Lay on 07/21/16. I agree with the above assessment and plan of care. rg Dictated by CON Ch for Daquan Ramírez MD [facility]
[2016-07-21] MEDS: ZOFRAN IV PRN (12:50)
[2016-07-21] MEDS ORDERED: INSULIN PEN NEEDLES ONE (20:00)
[2016-07-21] MEDS: CYMBALTA PO SCH (20:20)
[2016-07-21] MEDS: LIPITOR PO SCH (20:20)
[2016-07-21] MEDS: LANTUS SUBQ SCH (20:21)
[2016-07-22] MEDS: NS 1,000 ML IV SCH (03:19)
[2016-07-22] MEDS: NITROGLYCERIN TOP SCH ×3 (03:19→15:00)
[2016-07-22 05:23] LABS: MANUAL DIFF NEEDED? NO
[2016-07-22 05:45] LABS: BASO% 0.6 % (0.0-0.8); EOS# 0.51 X1000 (0.0-0.7); HEMATOCRIT 34.7 % (37.0-47.0); HEMOGLOBIN 10.9 g/dL (12.0-16.0); IMM GRAN# 0.05 X1000 (0.0-0.04); IMM GRAN% 0.4 % (0.0-0.5); LYMPH# 3.53 X1000 (1.2-3.4); LYMPH% 27.9 % (20.5-51.1); MCHC 31.4 g/dL (33-37); MCV 95.6 FL (81-99); MONO# 1.53 X1000 (0.11-0.59); MONO% 12.1 % (1.7-9.3); MPV 10.5 FL (7.4-10.4); PLT 370 X1000 (130-400); RBC 3.63 XMIL (4.2-5.4)
[2016-07-22 06:07] LABS: ALBUMIN 3.8 g/dL (3.5-5.0); CALCIUM 8.6 mg/dL (8.8-10.2); POTASSIUM 4.6 mmol/L (3.5-5.1)
[2016-07-22] MEDS: PRILOSEC PO SCH (06:17)
[2016-07-22] MEDS: HUMALOG SUBQ SCH ×4 (06:19→21:27)
[2016-07-22] MEDS ORDERED: TIGHT: 0.2 ML/HR MISC PRN (06:38)
[2016-07-22] MEDS ORDERED: NS 2,000 ML MISC PRN (06:38)
[2016-07-22] MEDS ORDERED: HEPARIN IV PRN (06:38)
--- NOTE | 2016-07-22 06:54 | DISCHARGE SUMMARY ---
ADMISSION DATE: 07/17/2016 DISCHARGE DATE: 07/21/2016 CONSULTATIONS: 1. Dr. Daquan Ramírez. 2. Dr. Huang of Cardiology. PERTINENT PROCEDURES: 1. Echocardiogram showed an EF of 65 to 70%. 2. Chest CT showed bibasilar small pleural effusions and atelectasis, superimposed pneumonia of the lung bases could not be excluded. 3. Left heart catheterization that showed essentially normal coronary arteries and preserved LV systolic function and elevation of left ventricular end-diastolic pressure secondary to end- stage renal disease performed by Dr. Lo. DISCHARGE DIAGNOSES: 1. Chest pain status post left heart catheterization that was completely normal , stable. 2. End-stage renal disease on hemodialysis. Patient will continue with her normal scheduled hemodialysis. 3. Diarrhea. C. difficile was sent that was negative, resolved. 4. Diabetes mellitus type 2 controlled. 5. Hyperlipidemia. 6. COPD without exacerbation. 7. Dizziness status post receiving Epogen. The patient has had an episode of dizziness after receiving Epogen. After speaking with Dr. Woods, she was found on the floor of the bathroom. No loss of consciousness. No injuries. She was gotten up. She did finish her lunch. Dr. Polanco told him that he would hold her for another day. She states that she is feeling much better. He is going to monitor her throughout the afternoon because he was late called so he may discharge her later in the day if not inbound call center agent. HOSPITAL COURSE: Ms. Wilkerson is a 55-year-old female with a past medical history of end-stage renal disease on hemodialysis, hypertension, hyperlipidemia, sleep apnea, glaucoma, depression and diastolic heart failure. GERD. Prior CVA. Uncontrolled diabetes mellitus type 2 with retinopathy who came to the ED complaining of left-sided chest pain radiating to her back and down her left arm which was achy in quality consistent waxing and waning in intensity. It was associated with movement and ease when she stopped moving. She reported a productive cough with whitish foamy sputum. There were complaints of nausea but no vomiting, chills but no fever. She complained of a 1-day history of orthopnea and PND. The patient was admitted with chest pain syndrome to rule out an WI. Cardiology was consulted. She was also started on nitroglycerin prn as well as morphine. She is on a beta dania. Dr. Ramírez was consulted with nephrology to continue her hemodialysis which the patient has received throughout her stay without complication except when she did get a dose of Epogen shortly after she had a dizzy spell from which now she has recovered. She did undergo a left heart catheterization with Dr. Lo. This showed normal coronary arteries. Her EF was 55%. The patient did have a left ventricular diastolic dysfunction with elevation of the LVEDP in relation to her end-stage renal disease. The patient did complain of episodes of diarrhea. They did send down for a C. difficile that was negative. The diarrhea has resolved. If the patient is not discharged later this afternoon, she will receive her hemodialysis in the morning and then be discharged home. DISCHARGE DIET: Healthy heart. DISCHARGE MEDICATIONS: 1. Cymbalta 60 mg p.o. every evening. 2. Lantus 40 units subcutaneously at bedtime. 3. Felodipine ER 10 mg p.o. every morning. 4. Lipitor 60 mg p.o. at bedtime. 5. Phenergan 25 mg p.o. q.6 hours PRN. 6. Advair Diskus 250-50 1 puff inhaled b.i.d. 7. Prilosec 20 mg p.o. daily. 8. Prinivil 40 mg p.o. b.i.d. 9. Calcium Caltrate 600+ D 1 each p.o. every morning. 10. Aspirin 325 mg p.o. daily. 11. Epogen 39576 units subcu Tuesday, Tuesday and Tuesday. 12. Gabapentin 600 mg p.o. b.i.d. 13. Prilosec 40 mg p.o. daily. 14. Metoprolol ER 25 mg p.o. daily. FOLLOW UP: Pending discharge home later this afternoon. She will need to follow up with her primary care physician Dr. Alonso Santiago in 7-10 days. She can follow up with Cardiology as indicated. She will need to keep her regular hemodialysis schedule once discharged. Patient can return to the ED for any worsening of symptoms. TIME SPENT: Greater than 30 minutes. Dictated by CON Reddy for Robert Hathaway MD MTDD
[2016-07-22] MEDS: ADVAIR 250/50 DISKUS INH SCH ×2 (07:37→19:37)
[2016-07-22] MEDS: NEURONTIN PO SCH ×2 (10:13→21:26)
[2016-07-22] MEDS: PLENDIL PO SCH (10:13)
[2016-07-22] MEDS: CALTRATE 600 + D PO SCH (10:13)
[2016-07-22] MEDS: HEPARIN SUBQ SCH ×2 (10:13→21:26)
[2016-07-22] MEDS: TOPROL XL PO SCH (10:14)
[2016-07-22] MEDS: PRINIVIL PO SCH ×2 (10:14→21:26)
[2016-07-22] MEDS: ASPIRIN PO SCH (10:14)
[2016-07-22] MEDS ORDERED: NS 2,000 ML ONE (10:55)
[2016-07-22] MEDS ORDERED: HEPARIN ONE (10:55)
--- NOTE | 2016-07-22 11:11 | PROGRESS NOTE ---
DATE: 07/22/2016 SUBJECTIVE: She states she has had no further difficulties. She has not fallen again. No dizziness or weakness or chest discomfort. OBJECTIVE: Vital Signs: Blood pressure 141/68, heart rate 76, respirations 14, afebrile. General: She is a middle-aged woman, in no acute distress. Skin: Warm and dry. Conjunctivae are pink. Pupils are equal. Neck: Neck veins are not distended. Heart: Regular with S4. Lungs: Have equal breath sounds. No crackles or wheezes. Abdomen: Soft, nontender. Bowel sounds are present. Extremities: Have no edema, clubbing, or cyanosis. LABORATORY DATA: Sodium 140, potassium 4.6, chloride 96, bicarbonate 26, BUN 61, creatinine 9.2, hemoglobin 10.9. IMPRESSION: 1. End-stage kidney disease. She will have her routine hemodialysis today prior to discharge. 2. Electrolytes/acid/anemia, all in target. Excellent blood pressure control. Okay for discharge from my perspective.
--- NOTE | 2016-07-22 17:28 | DISCHARGE SUMMARY ---
ADMISSION DATE: 07/17/2016 DISCHARGE DATE: 07/22/2016 ADDENDUM REPORT Ms. Wilkerson continued to have some dizziness after Dr. Polanco saw her late in the evening, yesterday. He did decide her to keep her overnight and monitor her. Today he has reassessed her. She has had no more dizziness. She will be discharged home today after her hemodialysis. Dictated by CON Reddy for Robert Hathaway MD
[2016-07-22] MEDS: LIPITOR PO SCH (21:26)
[2016-07-22] MEDS: CYMBALTA PO SCH (21:26)
[2016-07-22] MEDS: LANTUS SUBQ SCH (21:27)
[2016-07-23] MEDS: NITROGLYCERIN TOP SCH ×2 (03:54→06:26)
[2016-07-23] MEDS: NS 1,000 ML IV SCH (03:54)
[2016-07-23 05:34] LABS: ALBUMIN 3.6 g/dL (3.5-5.0); CALCIUM 8.7 mg/dL (8.8-10.2); POTASSIUM 4.4 mmol/L (3.5-5.1)
[2016-07-23] MEDS: PRILOSEC PO SCH (06:25)
[2016-07-23] MEDS: HUMALOG SUBQ SCH (06:26)
[2016-07-23 07:56] VITALS: BP 130/64
[2016-07-23] MEDS: ASPIRIN PO SCH (08:00)
[2016-07-23] MEDS: PLENDIL PO SCH (08:00)
[2016-07-23] MEDS: NEURONTIN PO SCH (08:01)
[2016-07-23] MEDS: TOPROL XL PO SCH (08:01)
[2016-07-23] MEDS: CALTRATE 600 + D PO SCH (08:01)
[2016-07-23] MEDS: HEPARIN SUBQ SCH (08:01)
[2016-07-23] MEDS: PRINIVIL PO SCH (08:01)
[2016-07-23] MEDS: ADVAIR 250/50 DISKUS INH SCH (08:13)
--- NOTE | 2016-07-23 11:22 | PROGRESS NOTE ---
DATE: 07/23/2016 SUBJECTIVE: She states she is feeling well today. No further episodes of loss of consciousness. No falls no chest pain. No shortness of breath. OBJECTIVE: Vital Signs: Blood pressure 130/64, heart rate 75, respiration 18, afebrile. General: She is in no distress. Skin: Warm and dry. Conjunctivae are pink. Neck: Neck veins are not distended. Heart: Regular with an S4. No murmurs. Lungs: Have equal breath sounds. No crackles or wheezes. Abdomen: Soft and nontender with normal bowel sounds. Extremities: Have no edema, clubbing, or cyanosis. LABORATORY DATA: Sodium 139, potassium 4.4, chloride 96, bicarbonate 28, BUN 35, creatinine 5.8. IMPRESSION: 1. End-stage kidney disease: She will have her next scheduled dialysis treatment at [facility] tomorrow. 2. Electrolytes are in target. 3. Hypertension in target. 4. Chest pain, resolved. 5. I support her discharge at any time.
--- NOTE | 2016-07-26 02:36 | DISCHARGE SUMMARY ---
ADMISSION DATE: 07/17/2016 DISCHARGE DATE: 07/23/2016 ADDENDUM REPORT Mrs. Wilkerson spent another night after having dialysis. Her dizziness has completely resolved. She will be discharged home today, and she will resume her normal outpatient hemodialysis. Dictated by CON Reddy for Robert Hathaway MD
== END 2016-07-23 10:24 | disposition home or self-care (01) | DRG 286 ==
LOC: ED 00:52 → EDIPHOLD 05:26 → 3S 11:28
PROVIDERS: ATTEND Internal Medicine
PROC: 5A1D60Z (ICD-10-PCS; 2016-07-17)
PROC: 4A023N7 Measurement of Cardiac Sampling and Pressure, Left Heart, Percutaneous Approach (ICD-10-PCS; principal; 2016-07-19)
PROC: B2111ZZ Fluoroscopy of Multiple Coronary Arteries using Low Osmolar Contrast (ICD-10-PCS; 2016-07-19)
PROC: B2151ZZ Fluoroscopy of Left Heart using Low Osmolar Contrast (ICD-10-PCS; 2016-07-19)
DX: R07.89 Other chest pain (principal); N18.6 End stage renal disease; I13.2 Hypertensive heart and chronic kidney disease with heart failure and with stage 5 chronic kidney disease, or end stage renal disease; E11.21 Type 2 diabetes mellitus with diabetic nephropathy; I50.32 Chronic diastolic (congestive) heart failure; E11.22 Type 2 diabetes mellitus with diabetic chronic kidney disease; E78.5 Hyperlipidemia, unspecified; G47.30 Sleep apnea, unspecified; H40.9 Unspecified glaucoma; F32.9 Major depressive disorder, single episode, unspecified; E11.319 Type 2 diabetes mellitus with unspecified diabetic retinopathy without macular edema; E11.65 Type 2 diabetes mellitus with hyperglycemia; J44.9 Chronic obstructive pulmonary disease, unspecified; K21.9 Gastro-esophageal reflux disease without esophagitis; E11.40 Type 2 diabetes mellitus with diabetic neuropathy, unspecified; D63.8 Anemia in other chronic diseases classified elsewhere; R19.7 Diarrhea, unspecified; R42 Dizziness and giddiness; T45.8X5A Adverse effect of other primarily systemic and hematological agents, initial encounter; W19.XXXA Unspecified fall, initial encounter; Z99.2 Dependence on renal dialysis; Z86.73 Personal history of transient ischemic attack (TIA), and cerebral infarction without residual deficits; Z79.899 Other long term (current) drug therapy; Z79.4 Long term (current) use of insulin; Z79.51 Long term (current) use of inhaled steroids; Z82.49 Family history of ischemic heart disease and other diseases of the circulatory system; Z83.3 Family history of diabetes mellitus; Q78.8 Other specified osteochondrodysplasias; Z90.3 Acquired absence of stomach [part of]
CPT/HCPCS: 71010; 71020; 71250; 80048; 80053; 80069; 82550; 82553; 82607; 82728; 82746; 82948; 83540; 83721; 83735; 84484; 85025; 85610; 85730; 87324; 87449; 87804; 93005; 93010; 93306; 93458; 94761; 96374; 96375; C1760; J0885; J1644; J1815; J1940; J2175; J2250; J2270; J2405; J7030; Q9967; 94640-76; 97110-GP; 97116-GP; 97530-GP

== ENCOUNTER 2017-01-30 10:45 | Inpatient (IN) ==
[2017-01-30] MEDS ORDERED: ASPIRIN PO STA (11:14)
[2017-01-30 11:40] LABS: ALLEN TEST YES; BE 4.4 mmoll (-3.0-3.0); BLOOD TYPE ARTERIAL; DRAW SITE R RADIAL; METHB 0.8 % (0.0-1.5); O2(CT) 10.3 mL/dL (15.0-23.0); SAMPLE BLOOD; SAO2 84.2 % (95.0-100.0); THB 8.9 g/dL (11.5-17.4); pH(98.6) 7.38 (7.35-7.45)
[2017-01-30 11:43] LABS: PCO2(98.6) 51 mmHg (35-45); PO2(98.6) 46 mmHg (60-100)
[2017-01-30 11:44] LABS: MODALITY ROOM AIR
[2017-01-30 12:21] LABS: MANUAL DIFF NEEDED? NO
[2017-01-30 12:24] LABS: BASO% 0.9 % (0.0-0.8); EOS# 0.52 X1000 (0.0-0.7); EOS% 6.1 % (0.0-10.0); HEMATOCRIT 30.1 % (37.0-47.0); IMM GRAN# 0.02 X1000 (0.0-0.04); IMM GRAN% 0.2 % (0.0-0.5); LYMPH# 1.74 X1000 (1.2-3.4); LYMPH% 20.6 % (20.5-51.1); MCH 31.3 PG (27-31); MCHC 33.2 g/dL (33-37); MCV 94.4 FL (81-99); MONO# 0.98 X1000 (0.11-0.59); MONO% 11.6 % (1.7-9.3); MPV 10.7 FL (7.4-10.4); NEUT% 60.6 % (42.2-75.2); PLT 276 X1000 (130-400); RBC 3.19 XMIL (4.2-5.4)
[2017-01-30 12:33] LABS: INR 1.02; PROTIME 10.7 Seconds (9.2-11.7); PTT 30.6 Seconds (22.0-36.0)
[2017-01-30 12:34] LABS: ACETONE SERUM NEGATIVE (NEGATIVE)
[2017-01-30 13:00] LABS: AGAP 19; ALBUMIN 4.5 g/dL (3.5-5.0); ALKALINE PHOSPHATASE 154 U/L (32-104); BUN 50 mg/dL (8-22); CALCIUM 9.5 mg/dL (8.8-10.2); CHLORIDE 85 mmol/L (98-107); CK PROFILE 93 U/L (24-173); COSMO 295; GOT 111 U/L (10-30); GPT 274 U/L (10-36); POTASSIUM 4.2 mmol/L (3.5-5.1); SODIUM 131 mmol/L (136-145); TCO2 27 mmol/L (25-35); TOTAL BILIRUBIN 0.38 mg/dL (0.20-1.00); TOTAL PROTEIN 8.3 g/dL (6.3-8.3)
[2017-01-30] MEDS ORDERED: HUMULIN R IV ONE (13:39)
[2017-01-30] MEDS ORDERED: PRINIVIL PO ONE (13:43)
[2017-01-30] MEDS ORDERED: ROCEPHIN 1 GM in NS 50 ML IV ONE (14:34)
[2017-01-30] MEDS ORDERED: TESSALON PO PRN (15:40)
[2017-01-30] MEDS ORDERED: ZOFRAN IV PRN (15:40)
[2017-01-30] MEDS ORDERED: TYLENOL PO PRN (15:40)
[2017-01-30] MEDS ORDERED: ROCEPHIN 1 GM in NS 50 ML IV SCH (15:40)
[2017-01-30] MEDS ORDERED: NS 2,000 ML MISC PRN (15:51)
[2017-01-30] MEDS: DUONEB (A & A) INH SCH ×3 (15:56→23:27)
[2017-01-30] MEDS ORDERED: HEPARIN ONE (16:05)
[2017-01-30] MEDS ORDERED: NS 2,000 ML ONE (16:05)
[2017-01-30] MEDS: HUMULIN R SUBQ SCH ×2 (16:35→21:47)
[2017-01-30] MEDS: PULMICORT INH SCH (19:45)
[2017-01-30] MEDS: ADVAIR 250/50 DISKUS INH SCH (19:46)
[2017-01-30] MEDS: HEPARIN SUBQ SCH (20:56)
[2017-01-30] MEDS: CALTRATE 600 + D PO SCH (20:56)
[2017-01-30] MEDS: MUCINEX PO SCH (20:57)
[2017-01-30] MEDS: CYMBALTA PO SCH (20:57)
[2017-01-30] MEDS: NEURONTIN PO SCH (20:57)
[2017-01-30] MEDS: PRINIVIL PO SCH (21:07)
[2017-01-30] MEDS ORDERED: INSULIN PEN NEEDLES ONE (21:47)
[2017-01-30] MEDS: LANTUS SUBQ SCH (21:48)
[2017-01-31] MEDS: DUONEB (A & A) INH SCH ×6 (03:17→23:08)
[2017-01-31 04:36] LABS: ALLEN TEST YES; BE 5.8 mmoll (-3.0-3.0); BLOOD TYPE ARTERIAL; DRAW SITE R RADIAL; METHB 0.9 % (0.0-1.5); O2(CT) 13.1 mL/dL (15.0-23.0); PO2(98.6) 131 mmHg (60-100); SAMPLE BLOOD; SAO2 98.4 % (95.0-100.0); THB 9.5 g/dL (11.5-17.4); pH(98.6) 7.38 (7.35-7.45)
[2017-01-31 04:37] LABS: MODALITY VENTIMASK; PCO2(98.6) 54 mmHg (35-45)
[2017-01-31 05:41] LABS: MANUAL DIFF NEEDED? NO
[2017-01-31 05:46] LABS: BASO% 1.3 % (0.0-0.8); EOS# 0.59 X1000 (0.0-0.7); EOS% 6.7 % (0.0-10.0); HEMATOCRIT 27.4 % (37.0-47.0); HEMOGLOBIN 9.3 g/dL (12.0-16.0); IMM GRAN# 0.02 X1000 (0.0-0.04); IMM GRAN% 0.2 % (0.0-0.5); LYMPH# 1.66 X1000 (1.2-3.4); LYMPH% 18.9 % (20.5-51.1); MCH 31.6 PG (27-31); MCHC 33.9 g/dL (33-37); MCV 93.2 FL (81-99); MONO# 1.24 X1000 (0.11-0.59); MONO% 14.1 % (1.7-9.3); MPV 10.5 FL (7.4-10.4); NEUT% 58.8 % (42.2-75.2); PLT 284 X1000 (130-400); RBC 2.94 XMIL (4.2-5.4)
[2017-01-31 05:56] LABS: HEMOGLOBIN A1C 11.8 % (4.8-6.0)
[2017-01-31 05:57] LABS: INR 1.02; PROTIME 10.7 Seconds (9.2-11.7); PTT 30.1 Seconds (22.0-36.0)
[2017-01-31 05:59] LABS: CALCIUM 8.9 mg/dL (8.8-10.2); MAGNESIUM 1.7 mg/dL (1.5-2.7); POTASSIUM 3.8 mmol/L (3.5-5.1); TOTAL BILIRUBIN 0.28 mg/dL (0.20-1.00); TOTAL PROTEIN 7.5 g/dL (6.3-8.3)
[2017-01-31] MEDS: HUMULIN R SUBQ SCH ×4 (06:14→21:33)
[2017-01-31 06:18] LABS: FREE T4 1.46 ng/dL (0.93-1.70)
[2017-01-31 06:36] LABS: URINE MICRO REVIEW NEEDED? NO; URINE SOURCE CLEAN CATCH
[2017-01-31 06:43] LABS: BILIRUBIN URINE NEGATIVE (NEGATIVE); BLOOD URINE TRACE (NEGATIVE); COLOR YELLOW; GLUCOSE URINE >1000 mg/dL (NEGATIVE); LEUKOCYTES URINE NEGATIVE (NEGATIVE); NITRITE URINE NEGATIVE (NEGATIVE); PROTEIN URINE >600 mg/dL (NEGATIVE); SP GRAVITY URINE 1.015; TURBIDITY URINE CLEAR (CLEAR); UROBILINOGEN URINE NORMAL (NORMAL)
[2017-01-31 06:45] LABS: UR EPITHELIAL CELLS >10 /HPF (<10); URINE BACTERIA 2+ /HPF; URINE CULTURE NEEDED? YES; URINE RBC <10 /HPF (<10)
[2017-01-31] MEDS: ADVAIR 250/50 DISKUS INH SCH ×2 (08:07→19:26)
[2017-01-31] MEDS: PULMICORT INH SCH ×2 (08:08→19:26)
[2017-01-31] MEDS: ASPIRIN PO SCH (08:14)
[2017-01-31] MEDS: PRILOSEC PO SCH (08:15)
[2017-01-31] MEDS: PRINIVIL PO SCH ×2 (08:15→21:28)
[2017-01-31] MEDS: CALTRATE 600 + D PO SCH ×3 (08:15→18:00)
[2017-01-31] MEDS: HEPARIN SUBQ SCH ×2 (08:15→21:29)
[2017-01-31] MEDS: MUCINEX PO SCH ×2 (08:15→21:29)
[2017-01-31] MEDS: TOPROL XL PO SCH (08:15)
[2017-01-31] MEDS: NEURONTIN PO SCH ×2 (08:15→21:28)
[2017-01-31] MEDS: PLENDIL PO SCH (08:17)
[2017-01-31] MEDS ORDERED: NS 2,000 ML MISC PRN (08:18)
[2017-01-31] MEDS ORDERED: TIGHT: 0.2 ML/HR MISC PRN (08:18)
[2017-01-31] MEDS ORDERED: HEPARIN IV PRN (08:18)
[2017-01-31] MEDS ORDERED: HEPARIN ONE (12:12)
[2017-01-31] MEDS ORDERED: NS 2,000 ML ONE (12:12)
[2017-01-31] MEDS ORDERED: ROCEPHIN 1 GM in NS 50 ML IV ONE (17:00)
[2017-01-31] MEDS: LANTUS SUBQ SCH (21:29)
[2017-01-31] MEDS: CYMBALTA PO SCH (21:29)
[2017-02-01] MEDS: DUONEB (A & A) INH SCH ×6 (03:25→22:43)
[2017-02-01] MEDS: HUMULIN R SUBQ SCH ×4 (06:06→20:49)
[2017-02-01] MEDS: PULMICORT INH SCH ×2 (07:42→19:26)
[2017-02-01] MEDS: ADVAIR 250/50 DISKUS INH SCH ×2 (07:42→19:26)
[2017-02-01 08:29] LABS: MANUAL DIFF NEEDED? NO
[2017-02-01 08:36] LABS: BASO% 0.8 % (0.0-0.8); EOS# 0.54 X1000 (0.0-0.7); HEMATOCRIT 30.6 % (37.0-47.0); IMM GRAN# 0.02 X1000 (0.0-0.04); IMM GRAN% 0.2 % (0.0-0.5); LYMPH# 3.54 X1000 (1.2-3.4); LYMPH% 32.6 % (20.5-51.1); MCH 31.3 PG (27-31); MCHC 32.7 g/dL (33-37); MCV 95.9 FL (81-99); MONO# 1.27 X1000 (0.11-0.59); MONO% 11.7 % (1.7-9.3); MPV 10.2 FL (7.4-10.4); NEUT% 49.7 % (42.2-75.2); PLT 320 X1000 (130-400); RBC 3.19 XMIL (4.2-5.4)
[2017-02-01 09:09] LABS: ALBUMIN 3.9 g/dL (3.5-5.0); CALCIUM 8.6 mg/dL (8.8-10.2); POTASSIUM 3.7 mmol/L (3.5-5.1); TOTAL BILIRUBIN 0.19 mg/dL (0.20-1.00); TOTAL PROTEIN 7.6 g/dL (6.3-8.3)
[2017-02-01 09:18] LABS: HEPATITIS PROFILE ACUTE SEE COMMENTS
[2017-02-01] MEDS: PLENDIL PO SCH (10:02)
[2017-02-01] MEDS: ASPIRIN PO SCH (10:03)
[2017-02-01] MEDS: NEURONTIN PO SCH ×2 (10:04→20:48)
[2017-02-01] MEDS: PRILOSEC PO SCH (10:04)
[2017-02-01] MEDS: PRINIVIL PO SCH ×2 (10:04→20:48)
[2017-02-01] MEDS: HEPARIN SUBQ SCH ×2 (10:05→20:48)
[2017-02-01] MEDS: CALTRATE 600 + D PO SCH ×3 (10:05→16:54)
[2017-02-01] MEDS: TOPROL XL PO SCH (10:05)
[2017-02-01] MEDS: MUCINEX PO SCH ×2 (10:05→20:48)
[2017-02-01] MEDS: CYMBALTA PO SCH (20:47)
[2017-02-01] MEDS: LANTUS SUBQ SCH (20:48)
[2017-02-01] MEDS ORDERED: TEGRETOL PO SCH (21:00)
[2017-02-02] MEDS: DUONEB (A & A) INH SCH ×4 (03:32→15:25)
[2017-02-02] MEDS ORDERED: HEPARIN ONE (06:47)
[2017-02-02] MEDS ORDERED: NS 2,000 ML ONE (06:48)
[2017-02-02] MEDS: HUMULIN R SUBQ SCH ×2 (07:01→14:42)
[2017-02-02] MEDS: ADVAIR 250/50 DISKUS INH SCH (07:40)
[2017-02-02] MEDS: PULMICORT INH SCH (07:41)
[2017-02-02] MEDS: CALTRATE 600 + D PO SCH ×2 (08:30→14:08)
[2017-02-02] MEDS ORDERED: EPOGEN SUBQ SCH (09:00)
[2017-02-02] MEDS ORDERED: HEPARIN IV PRN (09:55)
[2017-02-02] MEDS ORDERED: TIGHT: 0.2 ML/HR MISC PRN (09:55)
[2017-02-02] MEDS ORDERED: NS 2,000 ML MISC PRN (09:55)
[2017-02-02] MEDS: NEURONTIN PO SCH (10:25)
[2017-02-02] MEDS: PRINIVIL PO SCH (10:25)
[2017-02-02] MEDS: MUCINEX PO SCH (10:25)
[2017-02-02] MEDS: ALPHAGAN P 0.15% OPHTH SOLN BOTH EYES SCH ×2 (14:08→14:20)
[2017-02-02] MEDS: HEPARIN SUBQ SCH (14:14)
[2017-02-02] MEDS: ASPIRIN PO SCH (14:15)
[2017-02-02] MEDS: PRILOSEC PO SCH (14:21)
[2017-02-02] MEDS: PLENDIL PO SCH (14:25)
[2017-02-02] MEDS: TOPROL XL PO SCH (14:26)
[2017-02-02 14:42] VITALS: BP 149/76
[2017-02-02] MEDS ORDERED: ROCEPHIN 1 GM in NS 50 ML IV ONE (17:00)
[2017-02-02] MEDS ORDERED: DOXYCYCLINE PO SCH (21:00)
== END 2017-02-02 16:30 | disposition home health service (06) ==
LOC: ED 10:45 → SUATTDRO 15:05 → 4N 15:05
PROVIDERS: ATTEND Internal Medicine